=== PATIENT | female | born 1960 | race Caucasian/White ===

== ENCOUNTER 2022-02-28 12:36 | Emergency (ER) | payer OTHER ==
[~2022-02-28] VITALS: Ht 157.5 cm; Wt 79.4 kg
[2022-02-28] MEDS ORDERED: LEVOTHYROXINE50 MC8 PO (13:05)
[2022-02-28] MEDS ORDERED: HYDACE10B PO (13:53)
== END 2022-02-28 14:18 | disposition home or self-care (01) ==
LOC: ER 12:36
DX: S52.571A Other intraarticular fracture of lower end of right radius, initial encounter for closed fracture (principal); S50.812A Abrasion of left forearm, initial encounter; V43.52XA Car driver injured in collision with other type car in traffic accident, initial encounter; Z79.899 Other long term (current) drug therapy
CPT/HCPCS: 73110; A9270

== ENCOUNTER 2022-03-05 12:14 | Day surgery (SDC) | payer OTHER ==
[~2022-03-05] VITALS: Ht 157.5 cm; Wt 83.6 kg
[~2022-03-05 12:14] MED LIST: HYDACE10B PO; LEVOTHYROXINE50 MC8 PO
--- NOTE | 2022-03-05 14:16 | NUR ---
[facility] in [facility] warming gown applied. History, Chart, Medications and Allergies reviewed before start of procedure.Lungs clear T/O to Auscultation. Patient confirms NPO status and agrees with scheduled surgery. Pre-Op teaching done. Pt verbalizes understanding. Patient States Post-Procedure ride home has been arranged.
--- NOTE | 2022-03-05 19:06 | NUR ---
Patient up to Ambulate independently. Gait steady. Discharge instructions reviewed with patient. Patient verbalizes understanding. Copy given to patient to take home. Patient States Post-Procedure ride home has been arranged. Discharged via wheelchair to private car for ride home. DC INSTRUCTIONS REVIEWED WITH S.O., PAIN CONTROM SHEET FROM ORTHO, SCRIPTS TO [place], PT WILL HAVE SOMEONE WITH HER T/O THE WEEKEND, SENSATION TO FINGERS R HAND INTACT, MOVES ON COMMAND, PAIN W/MOVEMENT.
== END 2022-03-05 23:54 | disposition home or self-care (01) ==
LOC: ORSCMMR 12:14 → ORD 12:14 → ORSCMMR 12:16 → ORD 14:30
PROVIDERS: Orthopaedic Surgery
PROC: 0PSH04Z Reposition Right Radius with Internal Fixation Device, Open Approach (ICD-10-PCS; principal; 2022-03-05 14:30)
DX: S52.571A Other intraarticular fracture of lower end of right radius, initial encounter for closed fracture (principal); V43.52XA Car driver injured in collision with other type car in traffic accident, initial encounter; E03.9 Hypothyroidism, unspecified; Z79.899 Other long term (current) drug therapy; E66.9 Obesity, unspecified; Z68.34 Body mass index [BMI] 34.0-34.9, adult
CPT/HCPCS: A9270; C1713; J0690; J1885; J2250; J2704; J3010; J7120

== ENCOUNTER → 2023-05-16 | Outpatient (CLI) | payer OTHER ==
[2023-05-16 15:08] LABS: Candida species (DNA Probe) Negative (NEGATIVE); G. vaginalis (DNA Probe) Negative (NEGATIVE); T. vaginalis (DNA Probe) Negative (NEGATIVE)
[2023-05-18 08:09] LABS: HPV 16 Negative (Negative); HPV 18 Negative (Negative); HPV OTHER HR TYPES Negative (Negative)
== END | disposition home or self-care (01) ==
LOC: LAB SHORT 08:43 → LAB 08:43
PROVIDERS: Family Medicine
DX: Z01.419 Encounter for gynecological examination (general) (routine) without abnormal findings (principal); N89.9 Noninflammatory disorder of vagina, unspecified
CPT/HCPCS: 87480; 87510; 87624; 87660; G0145

== ENCOUNTER → 2024-06-13 | Outpatient (CLI) | payer BC ==
[2024-06-15 14:02] LABS: HSV 1 GLYCOPROTEIN G AB, IGG 1.07 IV (<=0.89); HSV 2 GLYCOPROTEIN G AB, IGG 6.81 IV (<=0.89)
== END ==
LOC: LAB SHORT 08:31 → LAB 08:31
PROVIDERS: Physician Assistant
DX: S00.221A Blister (nonthermal) of right eyelid and periocular area, initial encounter (principal)
CPT/HCPCS: 86695; 86696